=== PATIENT | female | born 1960 | race Asian ===

== ENCOUNTER 2016-10-11 14:38 | Emergency (ER) | payer MEDICAID, OTHER ==
[~2016-10-11] VITALS: Ht 170.2 cm; Wt 90.7 kg
[2016-10-11 14:54] VITALS: BP 151/98
[2016-10-11] MEDS ORDERED: HYDROCODONE/APAP 5/325MG 1 EACH TABLET ONE (15:51)
[2016-10-11] MEDS ORDERED: HYDROCODONE/APAP 5/325MG 1 EACH TABLET PO ONE (16:00)
== END 2016-10-11 16:13 | disposition home or self-care (01) ==
LOC: ER 14:39
DX: S89.92XA Unspecified injury of left lower leg, initial encounter (principal); I10 Essential (primary) hypertension; G89.29 Other chronic pain; M25.562 Pain in left knee; F17.200 Nicotine dependence, unspecified, uncomplicated; W01.0XXA Fall on same level from slipping, tripping and stumbling without subsequent striking against object, initial encounter; Y93.89 Activity, other specified; Y92.89 Other specified places as the place of occurrence of the external cause; Y99.8 Other external cause status
CPT/HCPCS: 72170; 73564; 99284; A4606; Z7610

== ENCOUNTER 2018-11-13 08:57 | Emergency (ER) | payer OTHER ==
[~2018-11-13] VITALS: Ht 170.2 cm; Wt 95.3 kg
[2018-11-13 09:06] VITALS: BP 171/70
[2018-11-13] MEDS ORDERED: IBUPROFEN 600 MG TABLET PO ONE (09:39)
[2018-11-13] MEDS: IBUPROFEN 600 MG TABLET PO ONE (09:41)
== END 2018-11-13 09:43 | disposition home or self-care (01) ==
LOC: ER 09:06
DX: M25.562 Pain in left knee (principal); G89.29 Other chronic pain; I10 Essential (primary) hypertension; F17.200 Nicotine dependence, unspecified, uncomplicated; Z98.890 Other specified postprocedural states

== ENCOUNTER 2019-08-07 18:20 | Emergency (ER) | payer OTHER ==
[~2019-08-07] VITALS: Ht 170.2 cm; Wt 93.9 kg
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
--- NOTE | 2019-08-07 18:26 | NUR ---
DR ALMEIDA AT BEDSIDE
[2019-08-07 18:44] LABS: BASOPHILS % (AUTO) 0.3 % (0.0-2.0); HEMATOCRIT 55 % (33-45); HEMOGLOBIN 18.7 g/dL (11.5-14.8); LYMPHOCYTES # (AUTO) 1.4 /CMM (0.8-4.8); MEAN CORPUSCULAR HGB CONC 34 g/dl (31.0-36.0); MEAN CORPUSCULAR VOLUME 94 fL (82-100); MONOCYTES # (AUTO) 0.4 /CMM (0.1-1.30); MONOCYTES % (AUTO) 2.2 % (2.0-12.0); NEUTROPHILS # (AUTO) 15.5 /CMM (1.8-8.9); NEUTROPHILS % (AUTO) 89.5 % (43.0-81.0); PLATELET COUNT (AUTO) 369 /CMM (150-450); RED BLOOD CELL COUNT(AUTO) 5.89 MIL/uL (4.0-5.2); WHITE BLOOD COUNT (AUTO) 17.3 K/uL (4.3-11.0)
[2019-08-07 18:52] LABS: CARBON DIOXIDE 24 mmol/L (21-32); CHLORIDE 105 mmol/L (98-107); CREATININE 1.3 mg/dL (0.6-1.3); GLUCOSE 183 mg/dL (74-106); SODIUM SERUM 140 mmol/L (136-145); UREA NITROGEN, BLOOD 22 mg/dL (7-18)
[2019-08-07] MEDS ORDERED: HYDROCODONE/APAP 5/325MG 1 EACH TABLET ONE (18:58)
[2019-08-07] MEDS ORDERED: ONDANSETRON 4 MG TAB.RAPDIS ONE (18:59)
[2019-08-07] MEDS ORDERED: ONDANSETRON 4 MG TAB.RAPDIS SL ONE (19:00)
[2019-08-07] MEDS ORDERED: HYDROCODONE/APAP 5/325MG 1 EACH TABLET PO ONE (19:00)
--- NOTE | 2019-08-07 19:00 | NUR ---
WHEELED OUT VIA RNEY FOR CT SCAN
--- NOTE | 2019-08-07 19:17 | NUR ---
PT BACK FROM CT
--- NOTE | 2019-08-07 19:18 | NUR ---
REPORT RECEIVED FROM AMMON FRANCIS FOR [facility]
[2019-08-07 19:37] LABS: EOSINOPHILS % (MANUAL) 2 % (0-4); LYMPHOCYTES % (MANUAL) 8 % (16-48); MONOCYTES % (MANUAL) 2 % (0-11.0); NEUTROPHILS % (MANUAL) 88 (42-76)
[2019-08-07] MEDS ORDERED: IV NS 0.9% 1,000 ML BAG IV ONE (20:00)
[2019-08-07 21:43] VITALS: BP 129/84
--- NOTE | 2019-08-07 21:43 | NUR ---
IV removed. Catheter intact and site benign. Pressure and 4x4 applied to site. No bleeding noted.Patient discharged to home in stable condition. Written and verbal after care instructions given. Patient verbalizes understanding of instruction.
== END 2019-08-07 21:43 | disposition home or self-care (01) ==
LOC: ER 18:26
DX: S42.001A Fracture of unspecified part of right clavicle, initial encounter for closed fracture (principal); S80.211A Abrasion, right knee, initial encounter; R55 Syncope and collapse; D72.829 Elevated white blood cell count, unspecified; I10 Essential (primary) hypertension; G89.29 Other chronic pain; F17.200 Nicotine dependence, unspecified, uncomplicated; Z98.890 Other specified postprocedural states; W18.09XA Striking against other object with subsequent fall, initial encounter; Y93.89 Activity, other specified; Y92.89 Other specified places as the place of occurrence of the external cause; Y99.8 Other external cause status
CPT/HCPCS: 36415; 70450; 71045; 72125; 73000; 73030; 80048; 84484; 85025; 93005; 96360; 99285; J7030; Q0162

== ENCOUNTER 2020-09-20 12:54 | Emergency (ER) | payer OTHER ==
[~2020-09-20] VITALS: Ht 170.2 cm; Wt 95.3 kg
[2020-09-20 12:54] VITALS: BP 150/103
--- NOTE | 2020-09-20 13:02 | NUR ---
THE PATIENT BIB FOR C/O STYE ON LT LOWER EYELID. ALERT AND ORIENTED X4. DENIES PAIN. DENIES CHANGE IN VISION. WILL CONTINUE TO MONITOR.
[2020-09-20] MEDS ORDERED: ERYT3.5O9 LEFTEYE (13:08)
== END 2020-09-20 13:13 | disposition home or self-care (01) ==
LOC: ER 12:54
DX: H00.015 Hordeolum externum left lower eyelid (principal); I10 Essential (primary) hypertension; Z98.890 Other specified postprocedural states

== ENCOUNTER 2021-05-03 15:33 | Emergency (ER) | payer MEDICARE, OTHER ==
[~2021-05-03] VITALS: Ht 170.2 cm; Wt 95.3 kg
[~2021-05-03 15:33] MED LIST: ERYT3.5O9 LEFTEYE
[2021-05-03 15:43] VITALS: BP 146/96
--- NOTE | 2021-05-03 15:43 | NUR ---
To ER bed 6, c/o L knee pain s/p slipped and fall, R eye stye, aaox3, breathing even and non labored, awaiting md moore
--- NOTE | 2021-05-03 16:05 | NUR ---
staff radiation therapist at bedside
[2021-05-03] MEDS ORDERED: ERYT3.5O9 RIGHTEYE (17:23)
--- NOTE | 2021-05-03 17:31 | NUR ---
Patient discharged to home in stable condition. Written and verbal after care instructions given. Patient verbalizes understanding of instruction.
== END 2021-05-03 17:32 | disposition home or self-care (01) ==
LOC: ER 15:39
DX: M25.562 Pain in left knee (principal); H01.003 Unspecified blepharitis right eye, unspecified eyelid; H00.013 Hordeolum externum right eye, unspecified eyelid; F17.200 Nicotine dependence, unspecified, uncomplicated; I10 Essential (primary) hypertension; Z98.890 Other specified postprocedural states; W01.0XXA Fall on same level from slipping, tripping and stumbling without subsequent striking against object, initial encounter; Y93.89 Activity, other specified; Y92.89 Other specified places as the place of occurrence of the external cause; Y99.8 Other external cause status
CPT/HCPCS: 73564-TC